=== PATIENT | male | born 1990 | race Caucasian/White ===

== ENCOUNTER 2023-12-21 11:26 | Emergency (ER) | payer OTHER ==
[~2023-12-21] VITALS: Ht 167.6 cm; Wt 77.0 kg
[2023-12-21 11:30] VITALS: TEMP 98.3; O2SAT 97
[2023-12-21] MEDS: BACITRACIN ZINC OINT UDPKT TOP ONE (12:04)
[2023-12-21] MEDS: LIDOCAINE HCL/PF 1% 10 MG/ML 5ML VIAL INFIL ONE (12:04)
[2023-12-21] MEDS ORDERED: IBUP-2029 MT (12:45)
[2023-12-21] MEDS: TETANUS, DIPHTHERIA, PERTUSSIS VAC/PF 0.5ML (>10YR OLD) IM ONE (12:48)
[2023-12-21 12:52] VITALS: BP 121/82; PULSE 66; RESP 12
[2023-12-21] MEDS: IBUPROFEN 600MG TABLET PO ONE (12:52)
== END 2023-12-21 13:10 | disposition home or self-care (01) ==
LOC: ER 12:02
DX: S61.412A Laceration without foreign body of left hand, initial encounter (principal); X58.XXXA Exposure to other specified factors, initial encounter; Y93.89 Activity, other specified; Y92.89 Other specified places as the place of occurrence of the external cause; Y99.8 Other external cause status
CPT/HCPCS: 73130; 90715; 12002; 90471; 99283; J3490; Z7610 ×2